=== PATIENT | female | born 1985 | race Caucasian/White ===

== ENCOUNTER → 2024-10-02 | Outpatient (CLI) | payer OTHER | LOC: LAB SHORT 17:47 → LAB 17:47 | DX: R39.15 Urgency of urination (principal); N39.0 Urinary tract infection, site not specified | CPT/HCPCS: 87086 ==

== ENCOUNTER 2025-02-22 13:37 | Emergency (ER) | payer OTHER ==
[~2025-02-22] VITALS: Ht 177.8 cm; Wt 90.7 kg
[2025-02-22 14:28] LABS: BASOPHILS ABSOLUTE AUTO 0.05 K/mm3 (0.00-0.23); BASOPHILS PERCENT AUTO 1 % (0-2); EOSINOPHILS ABSOLUTE AUTO 0.13 K/mm3 (0.00-0.68); EOSINOPHILS PERCENT AUTO 2 % (0-6); Hematocrit 30.0 % (33.0-51.0); Hemoglobin 8.6 g/dL (11.5-16.0); IMMATURE GRAN ABSOLUTE AUTO 0.02 K/mm3 (0.00-0.10); IMMATURE GRAN PERCENT AUTO 0 % (0-1); LYMPHOCYTES ABSOLUTE AUTO 1.81 K/mm3 (0.84-5.20); LYMPHOCYTES PERCENT AUTO 25 % (21-46); MONOCYTES ABSOLUTE AUTO 0.63 K/mm3 (0.16-1.47); MONOCYTES PERCENT AUTO 9 % (4-13); Mean Corpuscular HGB Conc 28.7 g/dL (31.5-36.5); Mean Corpuscular Volume 65 fL (80-100); NEUTROPHILS ABSOLUTE AUTO 4.74 K/mm3 (1.96-9.15); NEUTROPHILS PERCENT AUTO 64 % (41-73); NRBC ABSOLUTE 0.00 K/mm3 (0.00-0.02); NRBC Auto 0.0 /100 WBC (0.0-0.2); Platelet Count 387 K/mm3 (150-400); RDW Coefficient Variation 20.5 % (11.7-14.2); RDW Standard Deviation 47.3 fL (35.1-46.3)
[2025-02-22 14:50] LABS: Alanine Aminotransfer (ALT/SGP 22 U/L (12-78); Albumin, Blood 3.8 g/dL (3.4-5.0); Albumin/Globulin Ratio 1.1 (0.8-1.8); Anion Gap 8 mmol/L (3-11); Aspartate Aminotrans (AST/SGOT 11 U/L (12-37); Beta HCG, Quantitative, Serum <1 mIU/mL (0-3); Bilirubin, Total 0.2 mg/dL (0.1-1.0); Blood Urea Nitrogen 14 mg/dL (8-24); CO2, Blood 24 mmol/L (21-32); Calcium, Blood 8.5 mg/dL (8.5-10.1); Chloride, Blood 107 mmol/L (98-108); Creatinine, Blood 0.81 mg/dL (0.40-1.00); Globulin, Blood 3.6 g/dL (2.2-4.0); Glucose, Blood 96 mg/dL (70-99); Potassium, Blood 3.7 mmol/L (3.5-5.5); Sodium, Blood 135 mmol/L (136-145); Total Protein, Blood 7.4 g/dL (6.4-8.2)
[2025-02-22] MEDS ORDERED: NS 1,000 ML IV SCH (17:10)
[2025-02-22] MEDS ORDERED: Tranexamic Acid 100 ML IV ONE (17:10)
[2025-02-22] MEDS ORDERED: TRANEXAMIC ACI650 MG PO (17:24)
[2025-02-22] MEDS ORDERED: Ondansetron HCl 2 MG / ML 2ML Vial IV ONE (17:45)
[2025-02-22] MEDS ORDERED: ONDA4ODT MM (18:37)
[2025-02-22 19:06] VITALS: BP 108/92
[2025-02-22 20:42] LABS: Calcium, Ionized (POC) 1.12 mmol/L (1.10-1.46); Chloride (POC) 105 mmol/L (98-108); Creatinine (POC) 0.8 mg/dL (0.6-1.0); Glucose (ISTAT POC) 100 mg/dL (70-99); Hematocrit (POC) 25.0 % (36.0-46.0); Hemoglobin (POC) 8.5 g/dL (12.0-16.0); Potassium (POC) 3.5 mmol/L (3.5-5.5); Sodium (POC) 138 mmol/L (135-148); Total CO2 (POC) 19 mmol/L (21-32)
== END 2025-02-22 19:10 | disposition home or self-care (01) ==
LOC: ER 13:37
PROVIDERS: Physician Assistant
DX: N93.9 Abnormal uterine and vaginal bleeding, unspecified (principal); N85.8 Other specified noninflammatory disorders of uterus; D64.9 Anemia, unspecified
CPT/HCPCS: 74177; 76830; 76856; 80047; 80053; 84702; 85014; 85025; 86850; 86900; 86901; 93005; 93010; 96374-59; 96375; 99284-25; J2405; J7030; Q9967